=== PATIENT | female | born 1980 | race Caucasian/White ===

== ENCOUNTER 2020-01-24 09:54 | Emergency (ER) | payer BC, SELFPAY ==
[2020-01-24 10:20] VITALS: PULSE 93; O2SAT 99
[2020-01-24 10:21] VITALS: BP 112/68; PULSE 95; O2SAT 99
--- NOTE | 2020-01-24 10:21 | ED.UPPEXIN ---
HPI - Extremity Injury (Upper) General Chief Complaint: Extremity Injury, Upper Stated Complaint: FOOSH, right hand and arm pain Time Seen by Provider: 01/24/20 09:56 Source: patient Mode of arrival: Ambulatory Limitations: no limitations History of Present Illness HPI narrative: 39-year-old female nonsmoker with noncontributory medical history presents with a chief complaint of a mechanical, ground level fall in which she fell forward and suffered injuries to her right wrist, elbow and shoulder. She is right handed. She states that she tripped on a power cord and denies any head neck or back pain. Her primary area of complaint is at the base of her right thumb and she states it had initially been swollen but that has since improved after icing it. Her pain is worse with motion and improves with rest. Her pain is worse with palpation and improves with rest. She denies any numbness, tingling or weakness. She does have some increased pain in her right elbow and shoulder with range of motion. MD complaint: injury to: right, shoulder, elbow and wrist Onset (ago): minute(s) Other injuries: none Handedness: right Place: home Severity: moderate Relieving factors: rest Exacerbating factors: movement of extremity Context: fall and direct blow Associated symptoms: denies other symptoms Treatments prior to arrival: cold therapy Review of Systems Constitutional Constitutional: Denies chills, Denies fatigue, Denies fever(s), Denies frequent falls, Denies lethargy and Denies weakness Eyes Eyes: Denies change in vision, Denies eye discharge, Denies irritation and Denies loss of vision ENT Ears, Nose, Mouth, and Throat: Denies change in voice, Denies dizziness, Denies neck pain, Denies sore throat and Denies throat swelling Cardiovascular Cardiovascular: Denies chest pain, Denies irregular heart rhythm, Denies lightheadedness, Denies palpitations, Denies dyspnea, Denies dyspnea on exertion and Denies orthopnea Respiratory Respiratory: Denies cough, Denies dyspnea, Denies dyspnea on exertion and Denies wheezing Gastrointestinal Gastrointestinal: Denies abdominal pain, Denies change in bowel habits, Denies diarrhea, Denies nausea and Denies vomiting Musculoskeletal Musculoskeletal: Reports arthralgias, Reports limited range of motion, Denies neck pain and Denies numbness Integumentary/Breasts Skin/Breast: Denies pruritus, Denies erythema, Denies rash and Denies wounds Neurologic Neurologic: Denies behavioral changes, Denies confusion, Denies dizziness, Denies frequent falls, Denies loss of vision, Denies numbness and Denies weakness Psychiatric Psychiatric: Denies anxiety, Denies behavioral changes, Denies confusion, Denies depression, Denies homicidal ideation and Denies suicidal ideation Endocrine Endocrine: Denies fatigue, Denies flushing and Denies palpitations Hematologic/Lymphatic Hematologic/Lymphatic: Denies easy bruising Allergic/Immunologic Allergic/Immunologic: Denies urticaria, Denies throat swelling and Denies wheezing Patient History Social History Smoking Status: Never smoker Smoking Status: Never smoker alcohol intake frequency: 0-2 drinks per day Substance Use Type: does not use Exam Narrative Exam Narrative: GEN: AOx3 and in mild distress EYES: Pupils are equal, round, and reactive to light and accommodation. Extraoccular muscles are intact bilaterally. There is no subconjunctival hemorrhage or exudate. CHEST: Lungs are clear to auscultation bilaterally and free of wheezes, rales, or rhonchi. Heart rate is regular rhythm, there are no murmurs, clicks, rubs, or gallops. There is no chest wall tenderness. ABD: Abdomen is soft and nontender. There is no guarding or rebound. Bowel sounds are normal in all 4 quadrants. There is no mass or organomegaly. EXT: Full but painful range of motion of right shoulder. No deformity noted. Full but painful range of motion at right elbow, no effusion, clicking or deformity noted. Full but painful range of motion at right wrist without any obvious deformity. No numbness, tingling or weakness. She does have some pain in her anatomic snuffbox that seems to increase with axial loading of the thumb raising the suspicion of a possible scaphoid injury. SKIN: Warm, pink, and dry. No erythema or rash Initial Vital Signs Initial Vital Signs: Vital Signs Pulse Rate 93 H 01/24/20 10:20 Pulse Oximetry 99 01/24/20 10:20 Procedures Orthopedic Splinting/Casting Injury #1: Side: right Upper Extremity Injury Location: wrist Upper Extremity Immobilizer: thumb spica Post splinting neuro exam: intact Post splinting vascular exam: intact Placed by: Nursing Course Orders Ordered: ED Orders 01/24/20 10:25 XR elbow RT 2V Stat XR shoulder RT min 2V Stat XR wrist RT min 3V Stat Vital Signs Vital signs: Vital Signs - 8 hr 01/24/20 10:20 01/24/20 10:21 01/24/20 10:23 Temperature 98.2 F Pulse Rate 93 H 95 H Respiratory Rate 16 Blood Pressure 112/68 Pulse Oximetry 99 99 01/24/20 10:29 01/24/20 11:15 Temperature 98.6 F Pulse Rate 88 72 Respiratory Rate 14 14 Blood Pressure 112/68 118/80 Pulse Oximetry 99 99 MDM - Extremity Injury (Upper) Imaging Data Elbow : Radiologist's Impression: [address] [address] XRay Report Signed Patient: Tiffany LiMR#: [id number] : 1980Acct:[id number] Age/Sex: 39 / FDate of Service: 01/24/20 Loc: ED Accession Number: [id number] Procedure: XR elbow RT 2V Ordering Provider: Jaciel Hernandez D.O. PROCEDURE: XR ELBOW RT 2V INDICATIONS: fall with lateral elbow pain TECHNIQUE: 2 views of the elbow were acquired. COMPARISON: None. FINDINGS: Bones: No fractures or dislocations. No suspicious bony lesions. Soft tissues: No elbow joint effusion. No suspicious soft tissue calcifications. IMPRESSION: 1. No fracture or dislocation. Dictated by: Aris Guerrero M.D. on 01/24/2020 at 9:47 Approved by: Aris Guerrero M.D. on 01/24/2020 at 9:48 Wrist: Radiologist's Impression: Chart [facility] Diagnostics DATE TYPE STATUS REF RANGE/AUTHOR Hx 01/24/20 10:25 Aris Guerrero 01/24/20 10:25 Aris Guerrero 01/24/20 10:25 Aris Guerrero Tracy Annette 39, 1980 [facility], [facility] ED R02 177.8cm 74.843kg BMI: 23.7kg/m? Extremity Injury, Upper Search Chart No Data to Display No Data to Display No Data to Display No Data to Display Today 10:29 Tiffany Li 39 F [address] [address] XRay Report Signed Patient: Tiffany LiMR#: [id number] : 1980Acct:[id number] Age/Sex: 39 / FDate of Service: 01/24/20 Loc: ED Accession Number: [id number] Procedure: XR wrist RT min 3V Ordering Provider: Jaciel Hernandez D.O. PROCEDURE: XR WRIST RT MIN 3V INDICATIONS: fall with pain at distal radius and base of thumb TECHNIQUE: 4 views of the wrist were acquired. COMPARISON: None. FINDINGS: Bones: No fractures or dislocations. No suspicious bony lesions. Scaphoid view: The scaphoid appears intact. Soft tissues: No suspicious soft tissue calcifications. IMPRESSION: 1. No fracture or dislocation. Dictated by: Aris Guerrero M.D. on 01/24/2020 at 9:53 Approved by: Aris Guerrero M.D. on 01/24/2020 at 9:54 Shoulder: Radiologist's Impression: Tiffany Li 39 F [address] [address] XRay Report Signed Patient: Tiffany LiMR#: [id number] : 1980Acct:[id number] Age/Sex: 39 / FDate of Service: 01/24/20 Loc: ED Accession Number: [id number] Procedure: XR shoulder RT min 2V Ordering Provider: Jaciel Hernandez D.O. PROCEDURE: XR SHOULDER RT MIN 2V INDICATIONS: fall with anterior shoulder pain TECHNIQUE: 3 views of the shoulder were acquired. COMPARISON: None. FINDINGS: Bones: No fractures or dislocations. No suspicious bony lesions. Visualized ribs appear intact. Soft tissues: No suspicious soft tissue calcifications. IMPRESSION: 1. No fracture or dislocation. Dictated by: Aris Guerrero M.D. on 01/24/2020 at 9:46 Approved by: Aris Guerrero M.D. on 01/24/2020 at 9:47 Discharge Plan Departure Patient Disposition: Home Clinical Impression: Right wrist sprain Qualifiers: Encounter type: initial encounter Qualified Code(s): S63.501A - Unspecified sprain of right wrist, initial encounter Elbow sprain Qualifiers: Encounter type: initial encounter Laterality: right Qualified Code(s): S53.401A - Unspecified sprain of right elbow, initial encounter Sprain of right shoulder Qualifiers: Encounter type: initial encounter Shoulder sprain type: unspecified sprain Qualified Code(s): S43.401A - Unspecified sprain of right shoulder joint, initial encounter Discharge Date/Time: 01/24/20 11:16 Instructions: DI for Wrist Sprain Activity Restrictions/Additional Instructions: *You have been diagnosed with [right wrist pain, possible navicular fracture] *What to do: *Take medications as directed *Follow up with your primary care provider in 2-3 days, call for an appointment. Let them know you were seen in the Emergency Department and that we ask that you be seen in follow up *Return to ER if you should have any new, worsening or concerning symptoms Referrals: [facility] [Outside] Stand Alone Forms: Work Release Note
[2020-01-24 10:23] VITALS: RESP 16; TEMP 36.8
--- NOTE | 2020-01-24 10:25 | DI.RAD.S_ITS ---
PROCEDURE: XR ELBOW RT 2V INDICATIONS: fall with lateral elbow pain TECHNIQUE: 2 views of the elbow were acquired. COMPARISON: None. FINDINGS: Bones: No fractures or dislocations. No suspicious bony lesions. Soft tissues: No elbow joint effusion. No suspicious soft tissue calcifications. IMPRESSION: 1. No fracture or dislocation. Dictated by: Aris Guerrero M.D. on 01/24/2020 at 9:47 Approved by: Aris Guerrero M.D. on 01/24/2020 at 9:48
--- NOTE | 2020-01-24 10:25 | DI.RAD.S_ITS ---
PROCEDURE: XR WRIST RT MIN 3V INDICATIONS: fall with pain at distal radius and base of thumb TECHNIQUE: 4 views of the wrist were acquired. COMPARISON: None. FINDINGS: Bones: No fractures or dislocations. No suspicious bony lesions. Scaphoid view: The scaphoid appears intact. Soft tissues: No suspicious soft tissue calcifications. IMPRESSION: 1. No fracture or dislocation. Dictated by: Aris Guerrero M.D. on 01/24/2020 at 9:53 Approved by: Aris Guerrero M.D. on 01/24/2020 at 9:54
--- NOTE | 2020-01-24 10:25 | DI.RAD.S_ITS ---
PROCEDURE: XR SHOULDER RT MIN 2V INDICATIONS: fall with anterior shoulder pain TECHNIQUE: 3 views of the shoulder were acquired. COMPARISON: None. FINDINGS: Bones: No fractures or dislocations. No suspicious bony lesions. Visualized ribs appear intact. Soft tissues: No suspicious soft tissue calcifications. IMPRESSION: 1. No fracture or dislocation. Dictated by: Aris Guerrero M.D. on 01/24/2020 at 9:46 Approved by: Aris Guerrero M.D. on 01/24/2020 at 9:47
[2020-01-24 10:29] VITALS: BP 112/68; PULSE 88; RESP 14; TEMP 37; O2SAT 99; BMI 23.6
--- NOTE | 2020-01-24 11:08 | PC.NURSE ---
velcro spica applied to right wrist/hand. Patient states it is comfortable. adjustments and fit education given to patient.
[2020-01-24 11:15] VITALS: BP 118/80; PULSE 72; RESP 14; O2SAT 99
== END 2020-01-24 11:16 | disposition home or self-care (01) ==
PROVIDERS: Emergency Provider Emergency Medicine
DX: S63.501A Unspecified sprain of right wrist, initial encounter (principal); S53.401A Unspecified sprain of right elbow, initial encounter; S43.401A Unspecified sprain of right shoulder joint, initial encounter; W19.XXXA Unspecified fall, initial encounter
CPT/HCPCS: 73030; 73070; 73110; 99283

== ENCOUNTER → 2020-02-12 13:28 | Outpatient (CLI) | payer BC, SELFPAY ==
--- NOTE | 2020-02-12 | DI.MRI.S_ITS ---
PROCEDURE: MR WRIST RT WO CON INDICATIONS: RIGHT WRIST PAIN TECHNIQUE: Noncontrast coronal proton density fast spin echo and T2 fast spin echo with fat saturation; coronal 3-D gradient echo, axial T1 spin echo and T2 fast spin echo with fat saturation, sagittal T1 spin echo through the wrist. COMPARISON: None. FINDINGS: Image quality: Excellent. Bones and cartilage: The carpal bones are normally aligned. No bone marrow contusions or fractures. No evidence for avascular necrosis. Overlying cartilage surfaces appear normal. Carpal ligaments: The scapholunate and lunotriquetral ligaments appear intact. In the absence of intra-articular contrast, the extrinsic carpal ligaments are not well identified. On sagittal images, the pisohamate ligament appears intact. Triangular fibrocartilage complex: The triangular fibrocartilage appears intact. The adjacent meniscal homolog appears normal in the absence of intra-articular contrast. The extensor carpi ulnaris tendon is thickened at the level of distal ulnar and ulnar styloid with surrounding soft tissue edema suggestive of low-grade tendinosis. Tendons and soft tissues: The carpal tunnel structures appear normal, including the median nerve. The ulnar nerve appears normal within Guyon's canal. All six extensor tendon compartments demonstrate normal morphology, without pathologic tendon sheath fluid. No soft tissue ganglion cysts. IMPRESSION: 1. Finding is suggestive of tendinosis involving extensor carpi ulnaris tendon at the level of distal ulnar and ulnar styloid. Rest of the wrist tendons are intact. 2. Triangular fibrocartilage complex is intact. 3. Rest of the extensor and flexor tendons are intact. 4. No marrow edema. No fracture or dislocation. 5. Intrinsic and extrinsic wrist ligaments are grossly intact. Dictated by: Devin Sahu M.D. on 02/12/2020 at 16:18 Approved by: Devin Sahu M.D. on 02/12/2020 at 16:22
== END ==
PROVIDERS: PCP Family Medicine; Referring Provider Physician Assistant Medical; Visit Provider Physician Assistant Medical
DX: M25.531 Pain in right wrist (principal)
CPT/HCPCS: 73221

== ENCOUNTER → 2020-02-26 15:30 | Outpatient (CLI) | payer BC, SELFPAY ==
[2020-02-26 16:48] LABS: COVID19 -Nasal RAPID Negative (Negative); Influenza A - CEPHEID Flu A NEGATIVE (NEGATIVE); Influenza B - CEPHEID Flu B NEGATIVE (NEGATIVE)
== END ==
PROVIDERS: PCP Family Medicine; Visit Provider Family Medicine
DX: R50.9 Fever, unspecified (principal); R05 Cough
CPT/HCPCS: 87502; 87635

== ENCOUNTER 2020-04-09 17:59 | Emergency (ER) | payer BC, SELFPAY ==
[2020-04-09 18:17] VITALS: BP 137/80; PULSE 97; RESP 20; TEMP 36.7; O2SAT 96
[2020-04-09 18:42] LABS: Add Manual Diff / Slide Review NO; Basophils Absolute Auto 100 /uL (0-100); Basophils Percent Auto 1.2 % (0-2); Eosinophils Absolute Auto 100 /uL (0-450); Eosinophils Percent Auto 1.8 % (2-4); Hematocrit 34.5 % (36-46); Hemoglobin 11.7 g/dL (12.0-16.0); Lymphocytes Absolute Auto 1800 /uL (1100-4500); Lymphocytes Percent Auto 34.5 % (25-40); Mean Corpuscular Hemoglobin 31.3 PG (26-34); Mean Corpuscular Volume 92.2 fL (80-100); Monocytes Absolute Auto 500 /uL (0-900); Monocytes Percent Auto 10.4 % (3-14); Neutrophils Absolute Auto 2700 /uL (1500-7000); Neutrophils Percent Auto 52.1 % (50-75); Platelet Count 180 X10^3/uL (150-400); Red Blood Cell Count 3.74 X10^6/uL (4.0-5.2); Red Cell Distribution Width 13.3 % (11.6-14.8); White Blood Cell Count 5.1 X10^3/uL (4.5-11.0)
[2020-04-09 18:59] LABS: INR 0.9 (0.9-1.3); Prothrombin Time 10.9 SECONDS (10.1-12.7)
[2020-04-09 19:02] LABS: PTT Partial Thromboplastin Tim 31 SECONDS (26.4-36.2)
[2020-04-09 19:07] LABS: Alanine Aminotransferase 10 IU/L (<35); Albumin 4.2 g/dL (3.5-5.0); Albumin Globulin Ratio 1.2 (1.0-2.8); Alkaline Phosphatase 74 U/L (38-126); Aspartate Aminotransferase 21 IU/L (14-36); BUN Creatinine Ratio 24.1 (6-22); Bilirubin Total 0.4 mg/dL (0.2-1.3); Blood Urea Nitrogen 14 mg/dL (7-17); Calcium 9.3 mg/dL (8.4-10.2); Carbon Dioxide 28 mmol/L (22-32); Chloride 106 mmol/L (98-107); Estimated Glomerular Filt Rate > 60.0 mL/min (>60); Globulin 3.4 g/dL (1.7-4.1); Glucose 99 mg/dL (70-100); HEMOLYSIS < 15 (0-50); Potassium 3.8 mmol/L (3.4-5.1); Sodium 138 mmol/L (137-145); Total Protein 7.6 g/dL (6.3-8.2)
--- NOTE | 2020-04-09 19:44 | ED.ABDPAIN ---
HPI - Abdominal Pain General Chief Complaint: Abdominal Pain Stated Complaint: stomach pain left side, nausea, back pain Time Seen by Provider: 04/09/20 19:32 Source: patient Mode of arrival: Ambulatory History of Present Illness HPI narrative: Patient is a 40-year-old female is who presents with abdominal pain and diarrhea and bloody black stools today. She says she has had diarrhea off and on for about 1 week she has been having some abdominal cramping and pain. No fever or chills. She says she does get dizzy at times but has not passed out. She has not been taking Pepto dismal or iron. She also is complaining of left-sided flank pain which occasionally radiates around to her abdomen. She feels like her urine has a foul smell but denies any dysuria or urinary frequency yet. MD complaint: abdominal pain Pain Consistency: constant Location: [facility] Related Data Home Medications Medication Instructions Recorded Confirmed ondansetron HCl 4 mg tablet 4 mg PO Q8H PRN 01/28/20 02/26/20 sertraline 100 mg tablet 200 mg PO DAILY tab 01/28/20 02/26/20 trazodone 50 mg tablet 50 mg PO BEDTIME PRN 01/28/20 02/26/20 Previous Rx's Medication Instructions Recorded metoclopramide HCl [Reglan] 10 mg PO Q6H PRN #10 tab 04/09/20 Allergies Allergy/AdvReac Type Severity Reaction Status Date / Time amoxicillin [From Augmentin] Allergy Severe Hives, Verified 02/26/20 16:13 anaphylaxis clavulanic acid Allergy Severe Hives, Verified 02/26/20 16:13 [From Augmentin] anaphylaxis prochlorperazine AdvReac Severe neuorlogical Verified 02/26/20 16:13 [From Compazine] issues. Review of Systems Review of Systems Narrative: GENERAL: Denies chills, fatigue, malaise, fever, sweats, travel HEENT: Denies sinus pain, ear pain, sore throat, difficulty swallowing, neck pain RESPIRATORY: Denies dyspnea, cough, wheezing, hemoptysis, sputum. CARDIOVASCULAR: Denies chest pain, palpitations, orthopnea, edema GASTROINTESTINAL: See HPI : Denies dysuria, frequency, incontinence, hematuria, urinary retention, flank pain. MUSCULOSKELETAL: Denies weakness, joint pain, or bony pain SKIN: No rash, no erythema, no pruritus NEUROLOGIC: Denies weakness, dizziness, headache, numbness, change in speech, confusion PSYCHIATRIC: No concerning psychosocial issues. 12 point review of systems is negative except for those stated above and HPI Patient History Medical History (Updated 04/09/20 @ 20:59 by Bhavna Alexander DO) Abdominal discomfort Depression Insomnia Family History Father No problems noted. Social History Smoking Status: Never smoker Smoking Status: Never smoker alcohol intake frequency: 0-2 drinks per day Substance Use Type: does not use Exam Initial Vital Signs Initial Vital Signs: Vital Signs Temperature 98.0 F 04/09/20 18:17 Pulse Rate 97 H 04/09/20 18:17 Respiratory Rate 20 04/09/20 18:17 Blood Pressure 137/80 04/09/20 18:17 Pulse Oximetry 96 04/09/20 18:17 GENERAL: Well-appearing, well-nourished and in no acute distress. HEENT: Head atraumatic,EOMI, pupils reactive, face symmetric, moist mucous membranes CARDIOVASCULAR: Regular rate and rhythm without murmurs, rubs or gallops. RESPIRATORY: Breath sounds equal bilaterally, no wheezes rales or rhonchi. ABDOMEN: Soft, nontender. Normoactive bowel sounds all 4 quadrants. No guarding or rebound. RECTAL: Hemoccult-negative no gross blood EXTREMITIES: Normal range of motion, no clubbing or edema. Neurovascularly intact NEUROLOGICAL: Alert and oriented x4.Normal gait and speech. SKIN: Warm, dry, no laceration, no petechiae, no rashes or lesions. Course Orders Ordered: ED Orders 04/09/20 18:30 Complete Blood Count AUTO DIFF Stat Comprehensive Metabolic Panel Stat Partial Thromboplastin Time Stat Prothrombin Time INR Stat Type and Screen Stat 04/09/20 19:52 CT abdomen pelvis w con Stat Discontinued Medications Metoclopramide HCl (Metoclopramide Hcl 10 Mg Tablet) 10 mg PO NOW ONE Stop: 04/09/20 21:08 Last Admin: 04/09/20 21:19 Dose: 10 mg Documented by: SUMAYA Vital Signs Vital signs: Vital Signs - 8 hr 04/09/20 18:17 04/09/20 21:46 Temperature 98.0 F Pulse Rate 97 H 84 Respiratory Rate 20 14 Blood Pressure 137/80 126/69 Pulse Oximetry 96 98 MDM - Abdominal Pain Lab Data Attestation: I reviewed the patient's lab results. Result diagrams: 04/09/20 18:30 04/09/20 18:30 Labs: Lab Results 04/09/20 04/09/20 04/09/20 Range/Units 18:30 18:30 18:30 WBC 5.1 (4.5-11.0) X10^3/uL RBC 3.74 L (4.0-5.2) X10^6/uL Hgb 11.7 L (12.0-16.0) g/dL Hct 34.5 L (36-46) % MCV 92.2 (80-100) fL MCH 31.3 (26-34) PG MCHC 34.0 (30-36) % RDW 13.3 (11.6-14.8) % Plt Count 180 (150-400) X10^3/uL Neut % (Auto) 52.1 (50-75) % Lymph % (Auto) 34.5 (25-40) % Atkinson % (Auto) 10.4 (3-14) % Eos % (Auto) 1.8 L (2-4) % Baso % (Auto) 1.2 (0-2) % Neut # (Auto) 2700 (1741-8646) /uL Lymph # (Auto) 1800 (0545-9094) /uL Atkinson # (Auto) 500 (0-900) /uL Eos # (Auto) 100 (0-450) /uL Baso # (Auto) 100 (0-100) /uL PT 10.9 (10.1-12.7) SECONDS INR 0.9 (0.9-1.3) APTT 31 (26.4-36.2) SECONDS Sodium 138 (137-145) mmol/L Potassium 3.8 (3.4-5.1) mmol/L Chloride 106 (98-107) mmol/L Carbon Dioxide 28 (22-32) mmol/L BUN 14 (7-17) mg/dL Creatinine 0.58 (0.52-1.04) mg/dL Estimated GFR > 60.0 (>60) mL/min BUN/Creatinine Ratio 24.1 H (6-22) Glucose 99 (70-100) mg/dL Calcium 9.3 (8.4-10.2) mg/dL Total Bilirubin 0.4 (0.2-1.3) mg/dL AST 21 (14-36) IU/L ALT 10 (<35) IU/L Alkaline Phosphatase 74 (38-126) U/L Total Protein 7.6 (6.3-8.2) g/dL Albumin 4.2 (3.5-5.0) g/dL Globulin 3.4 (1.7-4.1) g/dL Albumin/Globulin Ratio 1.2 (1.0-2.8) Blood Type Antibody Screen 04/09/20 Range/Units 18:30 WBC (4.5-11.0) X10^3/uL RBC (4.0-5.2) X10^6/uL Hgb (12.0-16.0) g/dL Hct (36-46) % MCV (80-100) fL MCH (26-34) PG MCHC (30-36) % RDW (11.6-14.8) % Plt Count (150-400) X10^3/uL Neut % (Auto) (50-75) % Lymph % (Auto) (25-40) % Atkinson % (Auto) (3-14) % Eos % (Auto) (2-4) % Baso % (Auto) (0-2) % Neut # (Auto) (3812-5654) /uL Lymph # (Auto) (3351-2082) /uL Atkinson # (Auto) (0-900) /uL Eos # (Auto) (0-450) /uL Baso # (Auto) (0-100) /uL PT (10.1-12.7) SECONDS INR (0.9-1.3) APTT (26.4-36.2) SECONDS Sodium (137-145) mmol/L Potassium (3.4-5.1) mmol/L Chloride (98-107) mmol/L Carbon Dioxide (22-32) mmol/L BUN (7-17) mg/dL Creatinine (0.52-1.04) mg/dL Estimated GFR (>60) mL/min BUN/Creatinine Ratio (6-22) Glucose (70-100) mg/dL Calcium (8.4-10.2) mg/dL Total Bilirubin (0.2-1.3) mg/dL AST (14-36) IU/L ALT (<35) IU/L Alkaline Phosphatase (38-126) U/L Total Protein (6.3-8.2) g/dL Albumin (3.5-5.0) g/dL Globulin (1.7-4.1) g/dL Albumin/Globulin Ratio (1.0-2.8) Blood Type B Positive Antibody Screen Negative Point of care testing: Point of Care Testing Test Results Negative Urine Dip Bedside Urine Glucose Negative Bedside Urine Bilirubin - Negative Bedside Urine Ketone - Negative Urine Specific [place] 1.015 Bedside Urine Occult Blood - Negative Bedside Urine pH 7 Bedside Urine Protein - Negative Bedside Urine Urobilinogen - Negative Bedside Urine Nitrite - Negative Bedside Urine Leukocytes - Negative Esterase Imaging Data CT scan - abdomen/pelvis: Radiologist's Impression: PROCEDURE: CT ABDOMEN PELVIS W CON INDICATIONS: pain with diarrhea TECHNIQUE: After the administration of intravenous contrast, 5 mm thick sections acquired from the diaphragm to the symphysis. 5 mm coronal and sagittal reformats were acquired. For radiation dose reduction, the following was used: automated exposure control, adjustment of mA and/or kV according to patient size. COMPARISON: None. FINDINGS: Image quality: Excellent. ABDOMEN: Lung bases: Lung bases are clear. Heart size is normal. Solid organs: Liver is normal in size and enhancement. Gallbladder is unremarkable. Biliary system is non dilated. Pancreas enhances normally. Spleen is normal in size and enhancement. No adrenal nodules. Kidneys demonstrate normal size and enhancement, without hydronephrosis. Peritoneum and bowel: Bowel loops demonstrate normal wall thickness and caliber. No free fluid or air. There are a few nonspecific fluid-filled loops of small bowel most pronounced in the left upper abdomen and lower midline pelvis. No associated wall thickening. No evidence for obstruction. No surrounding inflammatory stranding. Normal appendix. Nodes and vessels: No retroperitoneal or mesenteric adenopathy by size criteria. Aorta and inferior vena cava are normal in size. Miscellaneous: No ventral hernias. PELVIS: Genitourinary: Bladder wall thickness is normal. Reproductive organs are unremarkable as imaged. Miscellaneous: No inguinal hernias. No pelvic adenopathy. Bones: No suspicious bony lesions. No acute vertebral body compression fractures. IMPRESSION: A few nonspecific fluid-filled loops of nondilated, non thickened small bowel scattered in the abdomen most pronounced in the left upper abdomen and lower midline pelvis. This may be related to nonspecific enteritis. Otherwise, no acute abnormalities identified in the abdomen or pelvis. Normal appendix. Dictated by: Subhash Horton M.D. on 04/09/2020 at 20:37 Approved by: Subhash Horton M.D. on 04/09/2020 at 20:46 MDM Narrative Medical decision making narrative: At this time there is no sign of bleeding hemoccult was negative. Hemoglobin hematocrit are stable no leukocytosis CT is negative. Symptoms are consistent with a viral gastroenteritis. She states that she has Zofran at but it does not seem to help her. She has a reaction to Compazine but would like something that works. We are giving her Reglan. She was monitored in the ED does not seem to have reaction to Reglan prescription was sent. Discharge Plan Departure Patient Disposition: Home Clinical Impression: Gastroenteritis Instructions: DI for Viral Gastroenteritis -- Adult Activity Restrictions/Additional Instructions: *You have been diagnosed with gastroenteritis *What to do: At this time no sign of bleeding. This is likely a viral infection which should resolve on its own. *Continue to take medications as directed Tylenol 650 mg every 4-6 hours if needed for [id number] pain Reglan 10 mg every 6 hours if needed for nausea or vomiting sent to [facility] *Follow up with your primary care provider in 2-3 days *Return to ER if you should have increasing pain, bloody stools in [or] any new, worsening or concerning symptoms Prescriptions: New metoclopramide HCl [Reglan] 10 mg tablet 10 mg PO Q6H PRN (Reason: nausea and vomiting) Qty: 10 RF: 0 No Action ondansetron HCl [Zofran] 4 mg tablet 4 mg PO Q8H PRN (Reason: nausea and vomiting) RF: 0 trazodone 50 mg tablet 50 mg PO BEDTIME PRNRF: 0 sertraline [Zoloft] 100 mg tablet 200 mg PO DAILY RF: 0 Referrals: Ki Trammell MD [Primary Care Provider] -
--- NOTE | 2020-04-09 19:52 | DI.CT.S_ITS ---
PROCEDURE: CT ABDOMEN PELVIS W CON INDICATIONS: pain with diarrhea TECHNIQUE: After the administration of intravenous contrast, 5 mm thick sections acquired from the diaphragm to the symphysis. 5 mm coronal and sagittal reformats were acquired. For radiation dose reduction, the following was used: automated exposure control, adjustment of mA and/or kV according to patient size. COMPARISON: None. FINDINGS: Image quality: Excellent. ABDOMEN: Lung bases: Lung bases are clear. Heart size is normal. Solid organs: Liver is normal in size and enhancement. Gallbladder is unremarkable. Biliary system is non dilated. Pancreas enhances normally. Spleen is normal in size and enhancement. No adrenal nodules. Kidneys demonstrate normal size and enhancement, without hydronephrosis. Peritoneum and bowel: Bowel loops demonstrate normal wall thickness and caliber. No free fluid or air. There are a few nonspecific fluid-filled loops of small bowel most pronounced in the left upper abdomen and lower midline pelvis. No associated wall thickening. No evidence for obstruction. No surrounding inflammatory stranding. Normal appendix. Nodes and vessels: No retroperitoneal or mesenteric adenopathy by size criteria. Aorta and inferior vena cava are normal in size. Miscellaneous: No ventral hernias. PELVIS: Genitourinary: Bladder wall thickness is normal. Reproductive organs are unremarkable as imaged. Miscellaneous: No inguinal hernias. No pelvic adenopathy. Bones: No suspicious bony lesions. No acute vertebral body compression fractures. IMPRESSION: A few nonspecific fluid-filled loops of nondilated, non thickened small bowel scattered in the abdomen most pronounced in the left upper abdomen and lower midline pelvis. This may be related to nonspecific enteritis. Otherwise, no acute abnormalities identified in the abdomen or pelvis. Normal appendix. Dictated by: Subhash Horton M.D. on 04/09/2020 at 20:37 Approved by: Subhash Horton M.D. on 04/09/2020 at 20:46
[2020-04-09] MEDS: METOCLOPRAMIDE HCL 10 MG TABLET PO (21:19)
[2020-04-09 21:46] VITALS: BP 126/69; PULSE 84; RESP 14; O2SAT 98
== END 2020-04-09 21:48 | disposition home or self-care (01) ==
PROVIDERS: Emergency Provider Emergency Medicine; PCP Family Medicine
DX: K52.9 Noninfective gastroenteritis and colitis, unspecified (principal); R10.12 Left upper quadrant pain
CPT/HCPCS: 36415; 74177; 80053; 81003; 81025; 85025; 85610; 85730; 86850; 86900; 86901; 99283; 99284; Q9967

== ENCOUNTER → 2020-04-14 16:50 | Outpatient (CLI) | payer BC, SELFPAY ==
[2020-04-14 17:09] LABS: Add Manual Diff / Slide Review NO; Basophils Absolute Auto 100 /uL (0-100); Basophils Percent Auto 1.1 % (0-2); Eosinophils Absolute Auto 100 /uL (0-450); Eosinophils Percent Auto 1.6 % (2-4); Hematocrit 35.7 % (36-46); Hemoglobin 11.8 g/dL (12.0-16.0); Lymphocytes Absolute Auto 1300 /uL (1100-4500); Mean Corpuscular Hemoglobin 30.7 PG (26-34); Mean Corpuscular Volume 93.2 fL (80-100); Monocytes Absolute Auto 400 /uL (0-900); Monocytes Percent Auto 8.5 % (3-14); Neutrophils Absolute Auto 3400 /uL (1500-7000); Neutrophils Percent Auto 64.8 % (50-75); Platelet Count 215 X10^3/uL (150-400); Red Blood Cell Count 3.83 X10^6/uL (4.0-5.2); Red Cell Distribution Width 13.4 % (11.6-14.8); White Blood Cell Count 5.2 X10^3/uL (4.5-11.0)
[2020-04-14 17:17] LABS: Hemoglobin A1C% w Est Avg Glu 5.5 % (4.0-6.0)
[2020-04-14 17:24] LABS: Cholesterol 220 mg/dL (140-199); HDL Cholesterol 69 mg/dL (40-60); LDL Cholesterol Calculated 131 mg/dL (<100); Triglycerides 102 mg/dL (35-150)
[2020-04-14 17:25] LABS: C-Reactive Protein Quant < 0.5 mg/dL (<1.0)
[2020-04-15 15:45] LABS: Deamidated Gliadin Ab IgA 5 units (0-19); Deamidated Gliadin Ab IgG 1 units (0-19); Immunoglobulin A,Qn 278 mg/dL (87-352); t-Transglutaminase IgA <2 U/mL (0-3)
== END ==
PROVIDERS: PCP Family Medicine; Referring Provider Family Medicine; Visit Provider Family Medicine
DX: Z00.01 Encounter for general adult medical examination with abnormal findings (principal); R10.9 Unspecified abdominal pain; S62.009A Unspecified fracture of navicular [scaphoid] bone of unspecified wrist, initial encounter for closed fracture
CPT/HCPCS: 36415; 80061; 82784; 83036; 83516; 85025; 86140

== ENCOUNTER → 2020-05-10 10:07 | Outpatient (CLI) | payer BC, SELFPAY ==
[2020-05-10 11:42] LABS: COVID19 -Nasal RAPID Negative (Negative)
== END ==
PROVIDERS: PCP Family Medicine; Visit Provider Specialist
DX: Z20.822 Contact with and (suspected) exposure to COVID-19 (principal)
CPT/HCPCS: 87635; C9803

== ENCOUNTER 2020-05-11 09:02 | Day surgery (SDC) | payer BC, SELFPAY ==
[2020-05-11] VITALS (7 sets, daily range): BP systolic 104–113; BP diastolic 65–76; PULSE 73–88; RESP 10–16; TEMP 36.4–36.8; O2SAT 96–100; BMI 26.2
--- NOTE | 2020-05-11 | PATH_ITS ---
[facility] Accession Number: [id number] . 01 Material submitted: . PART A: esophagus, E-G Junction - GE JUNCTION PART B: colon - RANDOM DESCENDING AND SIGMOID COLON . 02 Diagnosis: A. Gastroesophageal Junction, Biopsies: Squamocolumnar junctional mucosa with mild chronic inflammation. Negative for specialized intestinal metaplasia on alcian blue stain. Negative for dysplasia or malignancy. . B. Random Descending and Sigmoid Colon, Biopsies: Colonic mucosa with no diagnostic abnormality. Negative for active, chronic, and microscopic colitis. Negative for dysplasia and malignancy. . [facility] 05/14/2020 1554 Local . 02 Electronically signed: . Jaswinder Phoenix MD, PhD, Pathologist NPI- [id number] . 01 Gross description: . A. The specimen is received in formalin, labeled GE junction and consists of multiple jamil fragments of soft tissue measuring 1.0 x 0.7 x 0.2 cm in aggregate. The specimen is entirely submitted in cassette A1. B. The specimen is received in formalin, labeled descending and sigmoid random and consists of multiple jamil fragments of soft tissue measuring 2.0 x 1.0 x 0.3 cm in aggregate. The specimen is filtered and entirely submitted in cassette B1. (EA:[id number]) /MRV 05/12/2020 1224 Local . 02 Microscopic: . A. An AB/PAS stain is performed to evaluate for specialized intestinal metaplasia, and is negative for goblet cells. The control stains show appropriate reactivity. . 02 Pathologist provided ICD-10: K20.90, R19.4 . 02 CPT . 955261, 175424, 249242 Performed at: 01 [facility] [address] [place] [address] [address], [place], [place] [id number] MD Aris Oconnor MD Phone: [phone] Performed at: 02 [facility] [address] [place] [address] [place], [place] [id number] MD Babs Valverde MD Phone: [phone]
[2020-05-11] MEDS: LACTATED RINGERS 1,000 ML 200 ML IV (09:40)
--- NOTE | 2020-05-11 10:51 | PM.PREOP ---
Pre-operative Note COVID-19 COVID-19 status: Negative Result date/Date tested (Pos, Neg/Pending): 05/10/20 Interval Note History & Physical reviewed/Exam performed by Physician: Yes Changes to H&P: No ASA Class (for procedural sedation): I
[2020-05-11] MEDS: LIDOCAINE 4% SOLN 50 ML 20 ML TOP (11:11)
[2020-05-11] MEDS: MIDAZOLAM 5 MG/5 ML VIAL IV (11:12)
[2020-05-11] MEDS: fentaNYL 250 MCG/5 ML INJ IV (11:12)
--- NOTE | 2020-05-11 12:01 | PM.OP.ENDO ---
Operative Date/Time/Diagnoses Date of procedure: 05/11/20 Time of procedure: 12:04 Pre-op diagnosis: History of black stool. History of chronic loose stool. Procedure & Clinicians Study performed: EGD with cold biopsy. Colonoscopy with cold biopsy. Same procedure as scheduled: Yes Indications: Determine cause of black stool and lose stool. Surgeon: Felipe Estes Procedure Notes SCOAP/Timeout: Performed Procedure in detail: The patient had topical anesthetic applied to oropharynx. She was placed in left lateral decubitus position and underwent IV sedation directed by the surgeon consisting of fentanyl and Versed. A bite block was inserted and the scope was advanced through it into the esophagus. The esophagus was unremarkable. GE junction was noted at 36 cm from the incisors. There was a distinct Schatzki ring without narrowing at the GE junction.. The stomach insufflated well. There were no lesions seen in the body, antrum or at the incisura. The pyloric channel was quite narrowed and difficult to traverse. We ultimately made our way through with some minor trauma to the wall of the pyloric channel.. The duodenum was unremarkable to the 4th part. The papilla was prominent but otherwise unremarkable. The scope was brought back into the stomach and retroflexed. The proximal stomach normal in appearance. There was no evidence of a hiatal hernia from below.. The scope was straightened and brought out through the esophagus again. Biopsies were taken of this Schatzki ring (GE junction) region. No other lesions were seen. The scope was removed and the patient tolerated the procedure well. The patient was repositioned. The patient was placed in the left lateral decubitus position and underwent IV sedation directed by the surgeon consisting of fentanyl and Versed. Digital exam was unremarkable except for a palpable cervix.. The scope was inserted and advanced through the rectum into the sigmoid, descending, transverse, and ascending colon. No lesions were seen.. The cecum was reached identified by the ileocecal valve and the appendiceal opening. The ileocecal valve was unable to be cannulated. The scope was gradually brought out. No Polyps were found. Random biopsies were taken of the descending and sigmoid colon. This was to rule out a subclinical inflammation of the colon. The wall itself looked normal in appearance. The scope ultimately was retroflexed in the rectum. The appearance was normal.. The scope was removed and the patient tolerated the procedure well. The prep was very good. Scope withdrawal time: 7min (11 total) Sedation minutes: 46 Findings: other findings (Narrowed outlet of the stomach. No obvious cause. Early Schatzki ring at the gastroesophageal junction. Normal colonoscopy.) Specimen(s): other (GE junction biopsies. Random descending and sigmoid colon biopsies.) Complications: none Post-procedure Recommendations: Colonscopy in 10 years Follow up: as needed Disposition: PACU
--- NOTE | 2020-05-11 13:02 | SUR.PHASEII ---
Pt met discharge criteria: VSS, denied pain or nausea, able to drink fluids without difficulty. Discharge instructions discussed with pt, all questions answered. Transported via W/C to private vehicle.
[2020-05-11 13:45] LABS: Adenovirus F 40/41 Not Detected (Not Detect); Astrovirus Not Detected (Not Detect); Campylobacter Not Detected (Not Detect); Clostridium difficile toxin AB Not Detected (Not Detect); Cryptosporidium Not Detected (Not Detect); Cyclospora cayetanensis Not Detected (Not Detect); Entamoeba histolytica Not Detected (Not Detect); Enteroaggregative E.coli Not Detected (Not Detect); Enteropathogenic E.coli Not Detected (Not Detect); Enterotoxigenic E.coli It/st Not Detected (Not Detect); Giardia lamblia Not Detected (Not Detect); Norovirus GI/GII Not Detected (Not Detect); Plesiomonsa shigelloides Not Detected (Not Detect); Rotavirus A Not Detected (Not Detect); Salmonella Not Detected (Not Detect); Sapovirus Not Detected (Not Detect); Shiga-like toxin-prod E.coli Not Detected (Not Detect); Shigella/Enteroinvasive E.coli Not Detected (Not Detect); Vibrio Not Detected (Not Detect); Vibrio cholerae Not Detected (Not Detect); Yersinia enterocolitica Not Detected (Not Detect)
== END 2020-05-11 12:57 | disposition home or self-care (01) ==
PROVIDERS: PCP Family Medicine; Referring Provider Specialist; Visit Provider Specialist
PROC: 0DJ08ZZ Inspection of Upper Intestinal Tract, Via Natural or Artificial Opening Endoscopic (ICD-10-PCS; CPT 43235; principal; 2020-05-11 10:15)
PROC: 0DJD8ZZ Inspection of Lower Intestinal Tract, Via Natural or Artificial Opening Endoscopic (ICD-10-PCS; CPT 45378; 2020-05-11 10:15)
DX: K92.1 Melena (principal); R19.7 Diarrhea, unspecified; R10.9 Unspecified abdominal pain; K22.2 Esophageal obstruction; K20.90 Esophagitis, unspecified without bleeding
CPT/HCPCS: 45380; 43239; 87507; 99152; 99153; J2250; J3010